=== PATIENT | female | born 1985 | race Caucasian/White ===

== ENCOUNTER 2024-03-11 15:48 | Emergency (ER) | payer BC, OTHER ==
[2024-03-11] MEDS ORDERED: ASPIRIN EC 325 MG TABLET PO ONE (16:29)
[2024-03-11 16:57] LABS: Absolute Eosinophils 0.2 K/uL (0-0.5); Absolute Lymphocytes (CBC) 1.9 K/uL (0.7-4.9); Absolute Monocytes 0.4 K/uL (0.1-1.3); Absolute Neutrophil 2.8 K/uL (1.8-8.0); Basophils % 0.7 % (0-1.3); Eosinophils % 4.2 % (0-4.4); Hematocrit 36.7 % (36.0-45.0); Hemoglobin 12.7 g/dL (12.0-15.0); MCH 32.6 pg (27.0-35.0); MCHC 34.7 g/dL (32.0-36.0); MCV 93.9 fL (80-100); MPV 9.3 fL (7.6-11.3); Monocytes % 7.2 % (3.3-12.3); Neutrophils % 52.9 % (41.7-73.7); Nucleated Red Blood Cells % 0.1 % (0-0); Platelets 214 thou/uL (152-406); RBC Red Blood Cell Count 3.91 M/uL (3.86-4.86); Red Cell Distribution Width 11.7 % (12.1-15.2)
[2024-03-11 17:11] LABS: ALT/SGPT 20 U/L (13-56); Albumin 3.8 g/dL (3.4-5.0); Albumin/Globulin Ratio 1.1 (1.1-1.8); Alkaline Phosphatase 62 U/L (45-117); Anion Gap 8.8 mEq/L (5.0-15.0); BUN Blood Urea Nitrogen 13 mg/dL (7-18); Bicarbonate 27 mEq/L (21-32); Bilirubin Total 0.2 mg/dL (0.2-1.0); Globulin 3.4 g/dL (2.3-3.5); Glomerular Filtration Rate 75 ml/min (=/>90); Glucose Level 103 mg/dL (74-106); Magnesium 2.3 mg/dL (1.6-2.4); Potassium 3.8 mEq/L (3.5-5.1); Protein, Total 7.2 g/dL (6.4-8.2); Sodium Level 139 mEq/L (136-145); Troponin High Sensitivity 3.7 pg/mL (<58.9)
[2024-03-11 17:15] LABS: AST/SGOT < 10 U/L (15-37); Bilirubin Direct < 0.2 mg/dL (0-0.2)
--- NOTE | 2024-03-11 17:22 | RAD REPORT ---
EXAM DESCRIPTION: Lisa Single View03/11/2024 4:42 pm CLINICAL HISTORY: CHEST PAIN COMPARISON: No comparisons TECHNIQUE: Portable AP view of the chest. FINDINGS: The lungs are clear. No pneumothorax or effusion. The cardiomediastinal contours are unre markable. IMPRESSION: No acute cardiopulmonary process.
--- NOTE | 2024-03-11 17:27 | EDPHYS ---
Physician Documentation [facility] Name: Gray Hugo Age: 39 yrs Sex: Female : 1985 Arrival Date: 03/11/2024 Time: 15:48 Bed IW2 Private MD: ED Physician Alex Godwin HPI: 03/11 16:01 This 39 yrs old Female presents to ER via Ambulatory with complaints of Chest Pain . ms3 16:01 39-year-old female with no past medical history presents to the emergency department ms3 for chest pain that began 2 hours prior to arrival. Patient states the pain is a 3-4/10 and worse with deep breathing. Patient states with deep breathing the pain increases to a 7/10. Patient denies nausea, vomiting, shortness of breath, diaphoresis.. Historical: - Allergies: 15:58 Doxycycline; ld1 - PMHx: 15:58 None; ld1 - PSHx: 15:58 None; ld1 - Immunization history:: Adult Immunizations up to date. - Infectious Disease History:: Denies. - Social history:: Smoking status: Patient denies any tobacco usage or history of. ROS: 16:01 Constitutional: Negative for fever, and chills. ms3 16:01 Respiratory: Negative for shortness of breath, cough, wheezing, and pleuritic chest pain, Abdomen/GI: Negative for abdominal pain, nausea, vomiting, diarrhea, and constipation, MS/Extremity: Negative for injury and deformity, Skin: Negative for injury, rash, and discoloration, 16:01 Cardiovascular: Positive for chest pain, Exam: 16:01 Constitutional: This is a well developed, well nourished patient who is awake, alert, ms3 and in no acute distress. Chest/axilla: Normal chest wall appearance and motion. Nontender with no deformity. Cardiovascular: Regular rate and rhythm with a normal S1 and S2. No gallops, murmurs, or rubs. Normal PMI, no JVD. No pulse deficits. Respiratory: Lungs have equal breath sounds bilaterally, clear to auscultation and percussion. No rales, rhonchi or wheezes noted. No increased work of breathing, no retractions or nasal flaring. Abdomen/GI: Soft, non-tender, with normal bowel sounds. No distension or tympany. No guarding or rebound. No evidence of tenderness throughout. Skin: Warm, dry with normal turgor. Normal color with no rashes, no lesions, and no evidence of cellulitis. MS/ Extremity: Pulses equal, no cyanosis. Neurovascular intact. Full, normal range of motion. 17:11 ECG was reviewed by the Attending Physician. ms3 Vital Signs: 15:57 BP 161 / 94; Pulse 91; Resp 18; Temp 97.9(TE); Pulse Ox 96% on R/A; Weight 77.11 kg; ld1 Height 5 ft. 10 in. ; Pain 4/10; 15:57 Body Mass Index 24.39 (77.11 kg, 177.8 cm) ld1 15:57 Pain Scale: Adult ld1 MDM: 16:01 Differential diagnosis: abnormal EKG, acute myocardial infarction, pulmonary embolus. ms3 16:04 Patient medically screened. ms3 17:28 HEART Score: History: Slightly Suspicious (0), ECG: Normal (0), Age: < or = 45 years ms3 (0), Risk Factors: No Risk Factors Known (0), Troponin: < or = 1 x Normal Limit (0), Total Score = 0. Data reviewed: vital signs, nurses notes, lab test result(s), EKG, radiologic studies, and as a result, I will discharge patient. I considered the following discharge prescriptions or medication management in the emergency department Medications were administered in the Emergency Department. See MAR. Independent interpretation of the following test(s) in the Emergency Department EKG: See my EKG interpretation above X-Ray: My interpretation is CXR image reviewed by me does not reveal pna or ptx. Counseling: I had a detailed discussion with the patient and/or guardian regarding the historical points, exam findings, and any diagnostic results supporting the discharge/admit diagnosis, lab results, radiology results, the need for outpatient follow up, to return to the emergency department if symptoms worsen or persist or if there are any questions or concerns that arise at home. Special discussion: Based on the patient's history, exam, and Dx evaluation, there is no indication for emergent intervention or inpatient Tx. It is understood by the patient/guardian that if the Sx's persist or worsen they need to return immediately for re-evaluation. ED course: Discussed labs, EKG, chest x-ray findings with patient. Patient to follow-up with primary care physician in 2 to 3 days. Patient and her understand and agree with plan. All questions were answered. Return precautions discussed include worsening symptoms, or any other concerns. On reevaluation patient is alert and oriented x 4, no apparent distress, nontoxic-appearing, ambulatory in the emergency department. 03/11 16:01 Order name: Basic Metabolic Panel; Complete Time: 17:21 ms3 03/11 16:01 Order name: CBC with Diff; Complete Time: 17:15 ms3 03/11 16:01 Order name: D-Dimer; Complete Time: 17:15 ms3 03/11 16:01 Order name: LFT's; Complete Time: 17:21 ms3 03/11 16:01 Order name: Magnesium; Complete Time: 17:21 ms3 03/11 16:01 Order name: Troponin HS; Complete Time: 17:21 ms3 03/11 16:01 Order name: XRAY Chest (1 view); Complete Time: 17:22 ms3 03/11 16:01 Order name: EKG - Nurse/Tech; Complete Time: 16:37 ms3 03/11 16:01 Order name: IV Saline Lock; Complete Time: 16:37 ms3 03/11 16:01 Order name: Labs collected and sent; Complete Time: 16:37 ms3 03/11 16:01 Order name: O2 Per Protocol; Complete Time: 16:31 ms3 03/11 16:01 Order name: O2 Sat Monitoring; Complete Time: 16:31 ms3 EC:11 Rate is 72 beats/min. Rhythm is regular. QRS [place] is Normal. NE interval is normal. QRS ms3 interval is normal. Clinical impression: Normal ECG. Interpreted by me. Reviewed by me. Administered Medications: 16:33 Drug: Aspirin PO Chewable Tablet 324 mg PO once; 81 mg tablets x 4 Route: PO; ld1 Disposition Summary: 03/11/24 17:27 Discharge Ordered Notes: Location: Home ms3 Condition: Stable ms3 Diagnosis - Chest pain, unspecified ms3 Followup: ms3 - With: Royce Sosa DO - When: 2 - 3 days - Reason: Recheck today's complaints Discharge Instructions: - Discharge Summary Sheet ms3 - Nonspecific Chest Pain, Adult ms3 Forms: - Medication Reconciliation Form ms3 - Antibiotic Education ms3 - Prescription Opioid Use ms3 - Patient Portal Instructions ms3 - Leadership Thank You Letter ms3 Signatures: Dispatcher [employer] EDMS Alex Godwin, DO ms3 Gisella Godwin, RN RN ld1 Corrections: (The following items were deleted from the chart) 15:59 15:58 Allergies: No Known Allergies; ld1 ld1 16:02 16:02 BASIC METABOLIC PANEL+C.LAB.BRZ ordered. EDMS EDMS 16:02 16:02 CBC+H.LAB.BRZ ordered. EDMS EDMS 16:02 16:02 D-DIMER+COAG.LAB.BRZ ordered. EDMS EDMS 16:02 16:02 HEPATIC FUNCTION+C.LAB.BRZ ordered. EDMS EDMS 16:02 16:02 MAGNESIUM+C.LAB.BRZ ordered. EDMS EDMS 16:02 16:02 Troponin High Sensitivity+C.LAB.BRZ ordered. EDMS EDMS 16:02 16:02 Chest Single View+RAD.RAD.BRZ ordered. EDMS EDMS
--- NOTE | 2024-03-11 17:27 | ER ---
Nurse's Notes [facility] Name: Gray Hugo Age: 39 yrs Sex: Female : 1985 Arrival Date: 03/11/2024 Time: 15:48 Bed IW2 Private MD: Diagnosis: Chest pain, unspecified Presentation: 03/11 15:57 Chief complaint: Patient states: Chest pain since noon. Coronavirus screen: At this ld1 time, the client does not indicate any symptoms associated with coronavirus-19. Ebola Screen: No symptoms or risks identified at this time. Initial Sepsis Screen: Does the patient meet any 2 criteria? No. Patient's initial sepsis screen is negative. Does the patient have a suspected source of infection? No. Patient's initial sepsis screen is negative. Risk Assessment: Do you want to hurt yourself or someone else? Patient reports no desire to harm self or others. Onset of symptoms was March 11, 2024. 15:57 Method Of Arrival: Ambulatory ld1 15:57 Acuity: ELODIA 3 ld1 Triage Assessment: 15:58 General: Appears in no apparent distress. comfortable, Behavior is calm, cooperative, ld1 appropriate for age. Pain: Complains of pain in chest Pain does not radiate. Pain currently is 4 out of 10 on a pain scale. at worst was 7 out of 10 on a pain scale. Quality of pain is described as sharp, shooting, throbbing, Pain began suddenly, Is continuous. EENT: No signs and/or symptoms were reported regarding the EENT system. Neuro: Level of Consciousness is awake, alert, obeys commands, Oriented to person, place, time, situation, Appropriate for age. Cardiovascular: Capillary refill < 3 seconds Patient's skin is warm and dry. Rhythm is sinus rhythm. Respiratory: Airway is patent Respiratory effort is even, unlabored. GI: Abdomen is flat, non-distended. : No signs and/or symptoms were reported regarding the genitourinary system. Derm: No signs and/or symptoms reported regarding the dermatologic system. Musculoskeletal: No signs and/or symptoms reported regarding the musculoskeletal system. Historical: - Allergies: 15:58 Doxycycline; ld1 - PMHx: 15:58 None; ld1 - PSHx: 15:58 None; ld1 - Immunization history:: Adult Immunizations up to date. - Infectious Disease History:: Denies. - Social history:: Smoking status: Patient denies any tobacco usage or history of. Screenin:37 [facility] ED Fall Risk Assessment (Adult) History of falling in the last 3 months, ld1 including since admission No falls in past 3 months (0 pts) Confusion or Disorientation No (0 pts) Intoxicated or Sedated No (0 pts) Impaired Gait No (0 pts) Mobility Assist Device Used No (0 pt) Altered Elimination No (0 pt) Score/Fall Risk Level 0 - 2 = Low Risk Oriented to surroundings, Maintained a safe environment, Educated pt \T\ family on fall prevention, incl call for assistance when getting out of bed, Assessed \T\ reinforced patient's understanding of fall precautions, Provided non-skid footwear, Hourly rounding (assess needs \T\ fall precautionary measures) done, Used ambulatory aids as needed (educated on \T\ assisted with), Used gait belt as appropriate. Abuse screen: Denies threats or abuse. Denies injuries from another. Nutritional screening: No deficits noted. Tuberculosis screening: No symptoms or risk factors identified. Assessment: 17:37 Reassessment: Patient appears in no apparent distress at this time. No changes from ld1 previously documented assessment. Patient and/or family updated on plan of care and expected duration. Pain level reassessed. Patient is alert, oriented x 3, equal unlabored respirations, skin warm/dry/pink. Vital Signs: 15:57 BP 161 / 94; Pulse 91; Resp 18; Temp 97.9(TE); Pulse Ox 96% on R/A; Weight 77.11 kg; ld1 Height 5 ft. 10 in. ; Pain 4/10; 15:57 Body Mass Index 24.39 (77.11 kg, 177.8 cm) ld1 15:57 Pain Scale: Adult ld1 ED Course: 15:53 Patient arrived in ED. sj2 15:54 Alex Godwin DO is Attending Physician. ms3 15:58 Triage completed. ld1 15:58 Arm band placed on right wrist. ld1 16:36 Inserted saline lock: 20 gauge in left antecubital area, using aseptic technique. Blood ld1 collected. Flushed with 10 mL NS. 16:44 XRAY Chest (1 view) In Process Unspecified. EDMS 17:27 Royce Sosa DO is Referral Physician. ms3 17:37 Patient has correct armband on for positive identification. Placed in gown. Bed in low ld1 position. Call light in reach. Side rails up X2. quality assurance monitor final on. Pulse ox on. NIBP on. Door closed. Noise minimized. Warm blanket given. 17:37 No provider procedures requiring assistance completed. IV discontinued, intact, ld1 bleeding controlled, No redness/swelling at site. Patient maintains SpO2 saturation greater than 95% on room air. Administered Medications: 16:33 Drug: Aspirin PO Chewable Tablet 324 mg PO once; 81 mg tablets x 4 Route: PO; ld1 Medication: 17:37 VIS not applicable for this client. ld1 Outcome: 17:27 Discharge ordered by . ms3 17:37 Discharged to home ambulatory, ld1 17:37 Condition: stable 17:37 Discharge instructions given to patient, Instructed on discharge instructions, follow up and referral plans. Demonstrated understanding of instructions, follow-up care, 17:38 Patient left the ED. ld1 Signatures: Dispatcher [employer] EDOH Alex Godwin DO DO ms3 Gisella Godwin, RN RN ld1 Viviana Stevens sj2 Corrections: (The following items were deleted from the chart) 15:59 15:58 Allergies: No Known Allergies; ld1 ld1
[2024-03-11 18:08] VITALS: BP 161/94; TEMP 97.9; O2SAT 96
--- NOTE | 2024-03-14 17:08 | EKG ---
Test Date: 2024-03-11 Test Time: 16:45:38 Prototype Sewer: [place] MEASUREMENT RESULTS: Intervals: Rate: 72 SC: 130 QRSD: 106 QT: 398 QTc: 435 [place]: P: 64 SC: 130 QRS: 78 T: 60 INTERPRETIVE STATEMENTS: Normal sinus rhythm Normal ECG No previous ECG available for comparison Electronically Signed On 03-14-24 17:00:53 CDT by Jaylen Espinal
== END 2024-03-11 17:38 | disposition home or self-care (01) ==
LOC: ER 15:48
DX: R07.9 Chest pain, unspecified (principal)
CPT/HCPCS: 36415; 71045; 80048; 80076; 83735; 84484; 85025; 85379; 93005; 99284

== ENCOUNTER 2025-04-20 21:10 | Emergency (ER) | payer BC ==
--- OUTSIDE RECORDS SUMMARY | 2025-04-20 21:14 | XMS REPORT | Clinical Summary ---
Author Name Unknown Organization [facility] Address [address] [place] [address] Care Team Providers Care Political Research Scientist Name Role Phone Sofie Kee MD Unavailable [phone] Sofie Kee MD Unavailable [phone] Encounters Date Type Department Care Team Description 12/15/2024 9:45 AM CDT Ancillary Procedure [address] [address] Lump in the right breast, upper outer quadrant 12/15/2024 8:45 AM CDT Ancillary Procedure [address] [address] Lump in the right breast, upper outer quadrant 12/14/2024 1:30 PM CDT NPR MDA PATIENT ACCESS after 04/20/2024 Surgical History Surgery Date Site/Laterality Comments HYSTERECTOMY 06/05/2024 - 07/05/2024 Partial Family History Medical History Relation Name Comments Breast cancer Mother TNBC Thyroid cancer Mother twice, in her 20's and 50's Breast cancer Paternal Aunt Melanoma Paternal Uncle mets to brain & lungs Relation Name Status Comments Mother Paternal Aunt Alive Paternal Uncle Alive Social History Tobacco Use Types Packs/Day Years Used Date Smoking Tobacco: Never Assessed Comments No Sex and Gender Information Value Date Recorded Sex Assigned at Not on file Legal Sex Female 9:14 AM CDT Gender Identity Not on file Sexual Orientation Not on file Obstetrics History Para Term AB IAB SAB Ectopic Multiple Livin g Live Births 4 4 4 Date Outcome GA Total Labor Labor/2nd/3rd Weight Sex Type Anes PTL Radha A1 A5 Name Clin Term Term Term Term Plan of Treatment Health Maintenance Due Date Last Done Comments COVID-19 Vaccine (2023-2 5 season) 2025 Influenza Vaccine (#1) 2025 Pneumococcal Vaccine Aged Out No long er eligible based on patient's age to complete this topic Procedures Procedure Name Priority Date/Time Associated Diagnosis Comments US BREAST COMPLETE BILATERAL Routine 12/15/2024 10:18 AM CDT Lump in the right breast, upper outer quadrant MAMMO DIGITAL DIAGNOSTIC BILATERAL W DIONISIO Routine 12/15/2024 9:22 AM CDT Lump in the right breast, upper outer quadrant after 04/20/2024 Results * US Breast Complete - Bilateral (12/15/2024 10:18 AM CDT) Anatomical Region Laterality Modality Breast Bilateral Ultrasound Impressions 12/15/2024 10:28 AM CDT No suspicious sonographic findings identified. Overall BI-RADS Category: 2 - Benign Recommend return to annual screening mammography, due on 12/2025. Narrative 12/15/2024 10:28 AM CDT CLINICAL INDICATION: Patient is a 39 y.o. female and is seen for breast mass / nodule. US Breast Complete - Bilateral COMPARISON: The present examination has been compared to prior imaging studies performed : 12/15/2024 Diagnostic Mammogram w Dionisio - Bilateral at [facility] TECHNIQUE: Real-time sonographic imaging was performed on the following regions: bilateral, breast (including all 4 quadrants and retroareolar region), bilateral, axilla. Images were obtained in multiple scanning planes. FINDINGS: Ductal ectasia is seen in the bilateral retroareolar regions. No suspicious sonographic findings are identified in either breast. Specifically, no abnormality is seen in the patient's palpable area of concern at the 10 o'clock position, 7 cm from the nipple. The bilateral axilla lymph nodes are normal in appearance. Sofie Kee MD [facility] US ORDERABLES Final Re sult * (ABNORMAL) Diagnostic Mammogram w Dionisio - Bilateral (12/15/2024 9:22 AM CDT) Anatomical Region Laterality Modality Breast Bilateral Mammography Impressions 12/15/2024 10:26 AM CDT Right 1) Pertinent Negative: Right breast pertinent negative in the upper outer quadrant. Left There is no mammographic evidence of malignancy in the left breast. Overall BI-RADS Category: 0 - Incomplete: Needs Additional Imaging Evaluation Additional Imaging: Breast Ultrasound is recommended. Narrative 12/15/2024 10:26 AM CDT CLINICAL INDICATION: Patient is a 39 y.o. female and is seen for breast mass / nodule. Diagnostic Mammogram w Dionisio - Bilateral Computer-aided detection was utilized by the radiologist in the interpretation of this examination. Tomosynthesis was performed in CC and MLO projections. COMPARISON: No comparisons were made when reading this study. FINDINGS: The breasts are heterogeneously dense, which may obscure small masses. Right 1) Pertinent Negative: There is no finding in the region that correlates with patient-reported palpable mass in the upper outer quadrant of the right breast, middle depth. Left There is no evidence of suspicious masses, calcifications, or other abnormal findings in the left breast. Sofie Kee MD [facility] MAMMOGRAPHY ORDERABLES Final Result after 04/20/2024 [place] Advance Directives * Full Code (Latest Code Status on File) Date Activated Date Inactivated Comments 12/15/2024 7:18 AM Update based o n Advanced Directive Documentation Care Teams Political Research Scientist Relationship Specialty Start Date End Date [place] [address] [email or web address] PCP - External Primary Care Provider Obstetrics/Gynecology 12/12/24 [place] [address] [email or web address] PCP - External Follow Up A Obstetrics/Gynecology 12/12/24
[2025-04-20] MEDS ORDERED: ONDANSETRON 4 MG/2 ML VIAL ONE (21:22)
[2025-04-20] MEDS ORDERED: KETOROLAC 30 MG/ML INJ ONE (21:23)
[2025-04-20 21:42] LABS: Absolute Lymphocytes (CBC) 2.1 K/uL (0.7-4.9); Hematocrit 36.7 % (36.0-45.0); Hemoglobin 12.9 g/dL (12.0-15.0); MCH 32.8 pg (27.0-35.0); MCHC 35.0 g/dL (32.0-36.0); MCV 93.5 fL (80-100); MPV 9.4 fL (7.6-11.3); Nucleated RBC Absolute Count 0.0 (0-0); Nucleated Red Blood Cells % 0.0 % (0-0); RBC Red Blood Cell Count 3.93 M/uL (3.86-4.86); White Blood Count 7.60 thou/uL (4.3-10.9)
[2025-04-20 21:47] LABS: Urine Microscopic Reflex YN NO UMIC
[2025-04-20 22:01] LABS: ALT/SGPT 21 U/L (13-56); Albumin 4.2 g/dL (3.4-5.0); Albumin/Globulin Ratio 1.3 (1.1-1.8); Alkaline Phosphatase 50 U/L (45-117); Anion Gap 7.5 mEq/L (5.0-15.0); BUN Blood Urea Nitrogen 14 mg/dL (7-18); Globulin 3.2 g/dL (2.3-3.5); Glucose Level 92 mg/dL (74-106); Lipase 48 U/L (13-75); Potassium 3.5 mEq/L (3.5-5.1)
[2025-04-20 22:02] LABS: AST/SGOT < 10 U/L (15-37)
[2025-04-20] MEDS ORDERED: HYDROMORPHONE HCL 0.5 MG/0.5 ML INJ ONE (22:09)
--- NOTE | 2025-04-20 22:14 | EDPHYS ---
Physician Documentation [facility] Name: Gray Hugo Age: 40 yrs Sex: Female : 1985 Arrival Date: 04/20/2025 Time: 21:10 Bed 6 Private MD: ED Physician Marino Dumas HPI: 04/21 19:34 This 40 yrs old Female presents to ER via Ambulatory with complaints of Low Back Pain. tt7 19:34 Patient reports bilateral flank pain/lower back pain that worsened somewhat since tt7 yesterday. Over the past 2 weeks she has been treated with Macrobid for a urinary tract infection. She states she also had some nausea earlier in the day. No significant past medical history. Historical: - Allergies: 04/20 21:25 Morphine; kd3 21:25 Doxycycline; kd3 - Immunization history:: Adult Immunizations up to date, Flu vaccine is not up to date. - Infectious Disease History:: Denies. - Social history:: Smoking status: unknown. ROS: 04/21 19:32 Constitutional: negative for fever. Cardiovascular: negative for chest pain. tt7 Respiratory: negative for shortness of breath. Abdomen/GI: Positive for nausea, Negative for abdominal pain, vomiting, : Positive for flank pain, burning with urination, Skin: Negative for rash, Exam: 19:29 Constitutional: vital signs reviewed, well appearing. Head/Face: normocephalic, tt7 atraumatic. Eyes: no conjunctival injection, anicteric sclerae. ENT: mucus membranes moist. Neck: trachea midline, no JVD, no meningismus. Chest/axilla: normal chest wall appearance and motion, nontender, no crepitus. Cardiovascular: regular rate and rhythm, no murmurs, no rubs, no lower extremity edema. Respiratory: normal respiratory effort, no accessory muscle use, lungs CTAB. Abdomen/GI: soft, nondistended, nontender, no guarding or rebound, negative Sneed's sign, no McBurney point tenderness. Back: normal ROM, paraspinal lumbar tenderness, no midline spinal tenderness. Skin: warm, dry, intact, normal turgor, normal color, no rash. MS/ Extremity: normal ROM of extremities, no gross deformities. Neuro: alert and oriented with appropriate mental status, normal speech, follows commands, no focal neurologic deficits. Psych: appropriate mood and affect. Vital Signs: 04/20 21:20 BP 141 / 98; Pulse 95; Resp 18; Temp 98.3(O); Pulse Ox 99% ; Weight 68.04 kg; Height 5 kd3 ft. 10 in. ; Pain 7/10; 21:53 BP 108 / 69; Pulse 85; Resp 16; Pulse Ox 100% on R/A; jb4 22:30 BP 112 / 77; Pulse 80; Resp 16; Pulse Ox 99% on R/A; jb4 21:20 Body Mass Index 21.52 (68.04 kg, 177.8 cm) kd3 21:20 Pain Scale: Adult kd3 MDM: 21:20 Medical Screening Exam initiated tt7 21:29 Differential diagnosis: Pyelonephritis, acute cystitis, sciatica, lumbar strain, tt7 pancreatitis. Data reviewed: vital signs, nurses notes, lab test result(s). ED course: Patient is well-appearing, vital signs are stable, clinical presentation is most consistent with pyelonephritis, will check CBC, chemistry, lipase, and obtain urinalysis, patient's symptoms treated with IV Zofran and Toradol. 04/21 19:33 ED course: Laboratory studies are overall reassuring, urinalysis is normal without tt7 evidence of infection, this points to muscular skeletal cause of patient's lumbar back pain being more likely, on reassessment patient felt improved, discussed need for outpatient follow-up, after completion of the patient's emergency department evaluation, I do not suspect a life-threatening or disabling process. Patient is medically stable and not in need of emergent medical intervention. I had a detailed discussion with the patient regarding the historical points, exam findings, emergency department evaluation, diagnostic results, and the discharge diagnosis. I instructed the patient on outpatient management of their condition. I discussed the need for outpatient follow-up with a primary care physician. I informed the patient on return precautions, including the need to return to the ED if symptoms do not improve, worsen, or if there are any questions or concerns that arise at home. The patient was discharged in stable condition. 04/20 21: Order name: CBC with Diff; Complete Time: 22:01 tt7 04/20 21: Order name: CMP; Complete Time: 22:02 tt7 04/20 21: Order name: Lipase; Complete Time: 22:02 tt7 04/20 21:27 Order name: Test, Serum; Complete Time: 22:01 tt7 04/20 21:27 Order name: UA Rfx Caio Cult if indicated; Complete Time: 22:01 tt7 04/20 21:27 Order name: IV Saline Lock; Complete Time: 21:34 tt7 04/20 21:27 Order name: Labs collected and sent; Complete Time: 21:34 tt7 Administered Medications: 04/20 21:34 Drug: TORadol - Ketorolac IVP 15 mg IVP once Route: IVP; Site: left antecubital; kd3 21:34 Drug: Ondansetron IVP 4 mg IVP once; over 2 minutes Route: IVP; Site: left antecubital; kd3 22:15 Drug: HYDROmorphone IVP 0.5 mg IVP once Route: IVP; Site: left antecubital; jb4 Disposition: 04/21 19:35 Co-signature as Attending Physician, Marino Dumas DO. tt7 Disposition Summary: 04/20/25 22:14 Discharge Ordered Notes: Location: Home tt7 Problem: new tt7 Symptoms: are unchanged tt7 Condition: Stable tt7 Diagnosis - Low back pain tt7 Followup: tt7 - With: Emergency Department - When: As needed - Reason: Followup: tt7 - With: Private Physician - When: 1 - 2 days - Reason: Recheck today's complaints, Re-evaluation by your physician Discharge Instructions: - Discharge Summary Sheet tt7 - Acute Back Pain, Adult tt7 Forms: - Medication Reconciliation Form tt7 - Antibiotic Education tt7 - Prescription Opioid Use tt7 - Patient Portal Instructions tt7 - Leadership Thank You Letter tt7 Signatures: Dispatcher [employer] Brian Donaldson RN RN jb4 Simi Sharma RN RN kd3 Marino Dumas DO DO tt7 Corrections: (The following items were deleted from the chart) 04/20 21:28 21:28 CBC+H.LAB.BRZ ordered. EDMS EDMS 21:28 21:28 COMPREHENSIVE METABOLIC PANEL+C.LAB.BRZ ordered. EDMS EDMS 21:28 21:28 LIPASE+C.LAB.BRZ ordered. EDMS EDMS 21:28 21:28 TEST, SERUM+SC.LAB.BRZ ordered. EDMS EDMS 21:28 UA Rfx Caio Cult if indicated+U.LAB.BRZ ordered. EDMS EDMS
--- NOTE | 2025-04-20 22:14 | ER ---
Nurse's Notes [facility] Johanne Name: Gray Hugo Age: 40 yrs Sex: Female : 1985 Arrival Date: 04/20/2025 Time: 21:10 Bed 6 Private MD: Diagnosis: Low back pain Presentation: 04/20 21:20 Chief complaint: Patient states: I have had a UTI for a few weeks and it is getting kd3 worse. I saw my primary who gave me Macrobid. I have really bad back pain and a small fever. I was told to come get checked out. Ebola Screen: No symptoms or risks identified at this time. Initial Sepsis Screen: Does the patient meet any 2 criteria? No. Patient's initial sepsis screen is negative. Does the patient have a suspected source of infection? No. Patient's initial sepsis screen is negative. Risk Assessment: Do you want to hurt yourself or someone else? Patient reports no desire to harm self or others. Onset of symptoms was April 20, 2025. 21:20 Method Of Arrival: Ambulatory kd3 21:20 Acuity: ELODIA 4 kd3 21:24 Coronavirus screen: Vaccine status: Patient reports being unvaccinated. kd3 Triage Assessment: 21:20 General: Appears uncomfortable, Behavior is calm, cooperative. Pain: Complains of pain kd3 in low back area and right low back. Neuro: Level of Consciousness is awake, alert, obeys commands, Oriented to person, place, time, situation. Cardiovascular: Capillary refill < 3 seconds Patient's skin is warm and dry. Respiratory: Airway is patent Trachea midline Respiratory effort is even, unlabored, Respiratory pattern is regular, symmetrical. Historical: - Allergies: 21:25 Morphine; kd3 21:25 Doxycycline; kd3 - Immunization history:: Adult Immunizations up to date, Flu vaccine is not up to date. - Infectious Disease History:: Denies. - Social history:: Smoking status: unknown. Screenin:30 [facility] ED Fall Risk Assessment (Adult) History of falling in the last 3 months, jb4 including since admission No falls in past 3 months (0 pts) Confusion or Disorientation No (0 pts) Intoxicated or Sedated No (0 pts) Impaired Gait No (0 pts) Mobility Assist Device Used No (0 pt) Altered Elimination No (0 pt) Score/Fall Risk Level 0 - 2 = Low Risk Oriented to surroundings, Maintained a safe environment. Abuse screen: Denies threats or abuse. Nutritional screening: No deficits noted. Tuberculosis screening: No symptoms or risk factors identified. Assessment: 21:52 General: Appears in no apparent distress. uncomfortable, Behavior is calm, cooperative, jb4 appropriate for age. Pain: Complains of pain in mid back area and pelvis Pain radiates to right upper quadrant and left upper quadrant Pain currently is 9 out of 10 on a pain scale. Quality of pain is described as radiating, stabbing. Neuro: Level of Consciousness is awake, alert, obeys commands, Oriented to person, place, time, situation. Cardiovascular: Patient's skin is warm and dry. Respiratory: Airway is patent Respiratory effort is even, unlabored, Respiratory pattern is regular, symmetrical. : Denies pain in bilateral upper quadrant(s) flank(s). Derm: Skin is intact, Skin is pink, warm \T\ dry. Musculoskeletal: Circulation, motion, and sensation intact. Range of motion: limited in all extremities. 22:59 Reassessment: Patient appears in no apparent distress at this time. Patient and/or jb4 family updated on plan of care and expected duration. Pain level reassessed. Patient is alert, oriented x 3, equal unlabored respirations, skin warm/dry/pink. Vital Signs: 21:20 BP 141 / 98; Pulse 95; Resp 18; Temp 98.3(O); Pulse Ox 99% ; Weight 68.04 kg; Height 5 kd3 ft. 10 in. ; Pain 7/10; 21:53 BP 108 / 69; Pulse 85; Resp 16; Pulse Ox 100% on R/A; jb4 22:30 BP 112 / 77; Pulse 80; Resp 16; Pulse Ox 99% on R/A; jb4 21:20 Body Mass Index 21.52 (68.04 kg, 177.8 cm) kd3 21:20 Pain Scale: Adult kd3 ED Course: 21:18 Patient arrived in ED. gm2 21:20 Marino Dumas DO is Attending Physician. tt7 21:20 Arm band placed on right wrist. kd3 21:21 Triage completed. kd3 21:33 UA Rfx Caio Cult if indicated Sent. kd3 21:34 Test, Serum Sent. kd3 21:34 Inserted saline lock: 20 gauge in left antecubital area, using aseptic technique. Blood kd3 collected. Flushed with 10 mL NS. 21:34 Lipase Sent. kd3 21:34 CMP Sent. kd3 21:34 CBC with Diff Sent. kd3 21:51 Brian Morin, RN is Primary Nurse. jb4 23:01 Patient has correct armband on for positive identification. Bed in low position. Call jb4 light in reach. Side rails up X 1. Provided Education on: discharge instructions. 23:01 No provider procedures requiring assistance completed. IV discontinued, intact, jb4 bleeding controlled, No redness/swelling at site. Pressure dressing applied. Administered Medications: 21:34 Drug: TORadol - Ketorolac IVP 15 mg IVP once Route: IVP; Site: left antecubital; kd3 21:34 Drug: Ondansetron IVP 4 mg IVP once; over 2 minutes Route: IVP; Site: left antecubital; kd3 22:15 Drug: HYDROmorphone IVP 0.5 mg IVP once Route: IVP; Site: left antecubital; jb4 Medication: 22:30 VIS not applicable for this client. jb4 Outcome: 22:14 Discharge ordered by . tt7 23:01 Discharged to home ambulatory, jb4 23:01 Condition: stable 23:01 Discharge instructions given to patient, Instructed on discharge instructions, follow up and referral plans. Demonstrated understanding of instructions, follow-up care, 23:02 Patient left the ED. jb4 Signatures: Brian Morin RN RN jb4 Simi Sharma RN RN kd3 Juhi Klein Travis, DO DO tt7
[2025-04-21 01:26] VITALS: TEMP 98.3
[2025-04-21 01:28] VITALS: BP 112/77; O2SAT 99
== END 2025-04-20 23:02 | disposition home or self-care (01) ==
LOC: ER 21:10
DX: M54.50 Low back pain, unspecified (principal); R30.0 Dysuria; R11.0 Nausea
CPT/HCPCS: 85025; 36415; 84703; 81003; 83690; 80053; 96375; 96374; 99284; J1885; J1171; J2405